=== PATIENT | male | born 1950 | race Caucasian/White ===

== ENCOUNTER 2017-05-27 10:48 | Inpatient (IN) ==
[2017-05-27 12:07] LABS: Basophils % 0.3 % (0.0-0.8); Eosinophils % 0.8 % (0.00-10.9); Hematocrit 43.7 VOL% (42.0-52.0); Hemoglobin 15.5 GM/DL (14.0-18.0); Immature Granulocytes % 0.5 %; Immature Granulocytes Absolute 0.02 #; Lymphocytes % 24.9 % (21.2-54.2); Mean Corpuscular HGB Conc 35.5 GM/DL (32-36); Mean Corpuscular Hemoglobin 35 PG (27-34); Mean Corpuscular Volume 97.5 FL (87-102); Mean Platelet Volume 10.2 FL (9.6-12.0); Monocytes # 0.3 10*3/uL (0.11-0.8); Monocytes % 8.2 % (1.7-12.7); Neutrophils # 2.6 10*3/uL (1.4-7.4); Neutrophils % 65.3 % (38.7-73.9); Platelet Count 142 T/CUMM (130-400); Red Blood Count 4.48 MC/CUMM (3.8-5.5); Red Cell Distribution Width 12.7 % (9.3-17.3); White Blood Count 3.9 T/CUMM (4-12)
[2017-05-27 12:14] LABS: PT Patient Result 10.8 SECS; Partial Thromboplastin Time 26.7 SECS (0-40)
[2017-05-27 12:36] LABS: Apearance,Urine CLEAR (Clear); Bilirubin,Urine Negative (Negative); Blood, Urine Negative (Negative); Glucose,Urine (UA) Negative (Negative); Ketones,Urine Negative (Negative); Mucus,Urine Occasional /LPF (Occasional); Nitrite,Urine Negative (Negative); Protein,Urine Negative; RBC,Urine 1 /HPF (0-4); Urine Color Yellow (Yellow); Urine Specific Gravity 1.021 (1.001-1.035); Urine Urobilinogen < 2.0 EU/DL (0.2-1.0); WBC,Urine <1 /HPF (0-6)
[2017-05-27 12:43] LABS: Alanine Aminotransferase 42 U/L (16-61); Albumin 4.3 G/DL (3.4-5.0); Alkaline Phosphatase 65 U/L (45-117); Aspartate Amino Transferase 27 U/L (0-37); Barbiturates Screen,Urine Negative (Negative); Benzodiazepines Screen,Urine Negative (Negative); Blood Urea Nitrogen 20 MG/DL (7-18); Calcium 9.2 MG/DL (8.5-10.1); Cannabinoid Screen,Urine Negative (Negative); Glucose 108 MG/DL (74-106); Opiate Screen,Urine Positive (Negative); Osmolality,Calculated 276.8 MOS/KG (273-304); Phencyclidine Screen,Urine Negative (Negative); Potassium 4.5 MMOL/L (3.5-5.1); Sodium 137 MMOL/L (136-145); Total Protein 7.6 G/DL (6.4-8.3)
[2017-05-27] MEDS ORDERED: DEXTROSE 50% 25 GM/50 ML VIAL IV PRN (15:14)
[2017-05-27] MEDS ORDERED: GLUCAGON 1 MG VIAL IM PRN (15:14)
[2017-05-27] MEDS: SODIUM CHLORIDE 0.9% 1,000 ML IV SCH (15:15)
[2017-05-27] MEDS ORDERED: hydrALAZINE 20 MG/1 ML VIAL IV PRN (15:30)
[2017-05-27 16:05] LABS: Troponin I Only < 0.015 NG/ML (0.00-0.045)
[2017-05-27 16:56] LABS: Free T4 (Free Thyroxine) 1.13 NG/DL (0.76-1.46); Thyroid Stimulating Hormone 1.41 uIU/ml (0.358-3.74)
[2017-05-27 17:05] LABS: Risk Ratio 3.08; VLDL CHOLESTEROL 33.8 MG/DL
[2017-05-27] MEDS: INSULIN LISPRO 100 UNIT/ML SUBCUT SCH ×2 (17:11→21:13)
[2017-05-27] MEDS ORDERED: ENOXAPARIN 40 MG/0.4 ML SYRINGE ONE (17:17)
[2017-05-27] MEDS: ENOXAPARIN 40 MG/0.4 ML SYRINGE SUBCUT SCH (17:21)
[2017-05-27] MEDS: ZALEPLON 5 MG CAPSULE PO SCH (21:23)
[2017-05-27] MEDS: GABAPENTIN 400 MG CAPSULE PO SCH (21:23)
[2017-05-27] MEDS ORDERED: ACETAMINOPHEN 325 MG TABLET PO PRN (23:35)
[2017-05-28] MEDS: SODIUM CHLORIDE 0.9% 1,000 ML IV SCH (06:01)
[2017-05-28 08:33] LABS: Basophils % 0.6 % (0.0-0.8); Eosinophils # 0.1 10*3/uL (0.0-0.87); Eosinophils % 2.2 % (0.00-10.9); Hematocrit 42.1 VOL% (42.0-52.0); Hemoglobin 14.9 GM/DL (14.0-18.0); Immature Granulocytes % 0.3 %; Immature Granulocytes Absolute 0.01 #; Lymphocytes % 30.1 % (21.2-54.2); Mean Corpuscular HGB Conc 35.4 GM/DL (32-36); Mean Corpuscular Hemoglobin 34 PG (27-34); Mean Corpuscular Volume 97.2 FL (87-102); Mean Platelet Volume 10.5 FL (9.6-12.0); Monocytes # 0.3 10*3/uL (0.11-0.8); Monocytes % 8.1 % (1.7-12.7); Neutrophils # 1.9 10*3/uL (1.4-7.4); Neutrophils % 58.7 % (38.7-73.9); Platelet Count 128 T/CUMM (130-400); Red Blood Count 4.33 MC/CUMM (3.8-5.5); Red Cell Distribution Width 12.7 % (9.3-17.3); White Blood Count 3.2 T/CUMM (4-12)
[2017-05-28 09:15] LABS: Troponin I Only < 0.015 NG/ML (0.00-0.045)
[2017-05-28] MEDS: INSULIN LISPRO 100 UNIT/ML SUBCUT SCH ×4 (09:17→21:49)
[2017-05-28] MEDS: GABAPENTIN 400 MG CAPSULE PO SCH ×2 (09:18→21:49)
[2017-05-28] MEDS: ASPIRIN EC 81 MG TABLET PO SCH (09:18)
[2017-05-28 09:34] LABS: Calcium 8.7 MG/DL (8.5-10.1); Osmolality,Calculated 279.5 MOS/KG (273-304)
[2017-05-28] MEDS ORDERED: LORazepam 2 MG/1 ML VIAL IV ONE (12:44)
[2017-05-28] MEDS ORDERED: diphenhydrAMINE 50 MG/1 ML VIAL IV ONE (12:45)
[2017-05-28] MEDS: ENOXAPARIN 40 MG/0.4 ML SYRINGE SUBCUT SCH (16:30)
[2017-05-28] MEDS: ATORVASTATIN 40 MG TABLET PO SCH (16:30)
[2017-05-28] MEDS: CLOPIDOGREL 75 MG TABLET PO SCH (16:30)
[2017-05-28] MEDS: ZALEPLON 5 MG CAPSULE PO SCH (21:49)
[2017-05-29 06:15] LABS: Basophils % 0.6 % (0.0-0.8); Eosinophils # 0.1 10*3/uL (0.0-0.87); Eosinophils % 1.7 % (0.00-10.9); Hematocrit 41.3 VOL% (42.0-52.0); Hemoglobin 14.5 GM/DL (14.0-18.0); Lymphocytes # 1.3 10*3/uL (1.4-4.0); Lymphocytes % 35.6 % (21.2-54.2); Mean Corpuscular HGB Conc 35.1 GM/DL (32-36); Mean Corpuscular Hemoglobin 35 PG (27-34); Mean Corpuscular Volume 98.6 FL (87-102); Mean Platelet Volume 10.6 FL (9.6-12.0); Monocytes # 0.4 10*3/uL (0.11-0.8); Monocytes % 10.1 % (1.7-12.7); Neutrophils # 1.9 10*3/uL (1.4-7.4); Platelet Count 132 T/CUMM (130-400); Red Blood Count 4.19 MC/CUMM (3.8-5.5); Red Cell Distribution Width 12.7 % (9.3-17.3); White Blood Count 3.6 T/CUMM (4-12)
[2017-05-29 06:45] LABS: Calcium 8.5 MG/DL (8.5-10.1); Osmolality,Calculated 279.4 MOS/KG (273-304); Potassium 4.3 MMOL/L (3.5-5.1)
[2017-05-29] MEDS: INSULIN LISPRO 100 UNIT/ML SUBCUT SCH ×2 (08:45→12:18)
[2017-05-29] MEDS: CLOPIDOGREL 75 MG TABLET PO SCH (10:46)
[2017-05-29] MEDS: ATORVASTATIN 40 MG TABLET PO SCH (10:47)
[2017-05-29] MEDS: ASPIRIN EC 81 MG TABLET PO SCH (10:47)
[2017-05-29] MEDS: GABAPENTIN 400 MG CAPSULE PO SCH (10:47)
[2017-05-29 13:55] VITALS: BP 165/75
== END 2017-05-29 14:47 | disposition home health service (06) | DRG 65 ==
LOC: N.ED 10:48 → N.EDINP 13:30 → SUATTDRO 13:30 → N.EDINP 17:40 → N.5E 17:48 → N.4E 20:14
PROVIDERS: ADMIT Internal Medicine; ATTEND Pediatrics